=== PATIENT | male | born 1965 | race Hispanic/Latino ===

== ENCOUNTER 2018-03-08 15:17 | Emergency (ER) | payer SELFPAY ==
[~2018-03-08] VITALS: Ht 172.7 cm; Wt 103.9 kg
[2018-03-08] MEDS ORDERED: ONDANSETRON HCL 4 MG ORAL DISINTEGRATING TAB PO ONE (15:45)
[2018-03-08] MEDS ORDERED: MORPHINE SULFATE INJ 4 MG/ML INJ IV PRN (15:45)
--- NOTE | 2018-03-08 16:50 | Diagnostic Imaging Report ---
LEFT ANKLE X-RAY 3 VIEWS, LEFT FOOT X-RAY 3 VIEWS HISTORY: \S\FALL \[id number] \[id number] COMPARISON: None available. FINDINGS: Bones: Acute displaced comminuted fracture of the medial malleolus with intra-articular extension and mild angulation of the distal fragment. There appears to be also acute fracture of the posterior malleolus. Joints: The joint spaces are well-maintained. Soft tissues: Diffuse soft tissue swelling surrounding the left ankle. IMPRESSION: Acute comminuted fractures of the left medial and posterior malleolus, extending into the ankle joint. Signed by: Dr. Neena Loyd M.D. on 03/08/2018 4:40 PM
--- NOTE | 2018-03-08 16:50 | Diagnostic Imaging Report ---
LEFT ANKLE X-RAY 3 VIEWS, LEFT FOOT X-RAY 3 VIEWS HISTORY: \S\FALL \[id number] \[id number] COMPARISON: None available. FINDINGS: Bones: Acute displaced comminuted fracture of the medial malleolus with intra-articular extension and mild angulation of the distal fragment. There appears to be also acute fracture of the posterior malleolus. Joints: The joint spaces are well-maintained. Soft tissues: Diffuse soft tissue swelling surrounding the left ankle. IMPRESSION: Acute comminuted fractures of the left medial and posterior malleolus, extending into the ankle joint. Signed by: Dr. Neena Loyd M.D. on 03/08/2018 4:40 PM
== END 2018-03-08 18:37 | disposition home or self-care (01) ==
LOC: ER 15:17
DX: S82.52XA Displaced fracture of medial malleolus of left tibia, initial encounter for closed fracture (principal); W50.2XXA Accidental twist by another person, initial encounter; Y92.008 Other place in unspecified non-institutional (private) residence as the place of occurrence of the external cause
CPT/HCPCS: 29515; 73610; 73630; 99284; J2270